=== PATIENT | female | born 1945 | race Caucasian/White ===

== ENCOUNTER 2016-11-04 13:23 | Emergency (ER) | payer OTHER, MEDICARE ==
--- NOTE | 2016-11-04 13:52 | UCPHY ---
H & P Time Seen by Provider: 11/04/16 13:29 Patient Type: New HPI/ROS: CHIEF COMPLAINT: Right otalgia x2 weeks HISTORY OF PRESENT ILLNESS: 71-year-old female history of frequent cerumen impaction, uses Debrox on a regular basis complaining of atraumatic right otalgia and decreased hearing right ear for the past 2 weeks. She notes that she is exquisitely sensitive to speculum examination of the external auditory canal or to cerumen disimpaction. No otorrhea. No dizziness. No vertigo. No nausea no vomiting. No headache. No rash. PHYSICAL EXAM (Prior to examination, patient consented to physical exam, hands were washed and my usual and customary physical exam procedures followed) 1) GENERAL: Well-developed, well-nourished, alert and oriented. Appears to be in no acute distress. 2) HEAD: Normocephalic 3) HEENT: left ear: Sensitivity with speculum placement. Clear EAC. Normal appearing tympanic membrane. Mastoid nontender non boggy. No rash. Right ear : Patient experiences quite a bit of sensitivity with speculum placement in the external auditory canal. No otorrhea. No pain with movement of the auricle or tragus. Complete cerumen impaction. I am unable to visualize the tympanic membrane. Right mastoid nontender non boggy. No rash. 4) LUNGS: Breathing comfortably. 5) SKIN: no rash or vesicles Allergies/Adverse Reactions: No Known Allergies Allergy (Unverified 07/30/13 13:13) Home Medications: Medication Instructions Recorded Estrogen Dot 07/30/13 Hydrocodone Bit/Acetaminophen 07/30/13 Lorazepam 07/30/13 Lyrica 07/30/13 MDM/Departure - [facility] ED Course/Re-evaluation: This patient has right otalgia with right cerumen impaction. I offered and recommended debridement of cerumen however she notes that because she has quite a bit of sensitivity she declines this prefers to perform at home debrox and follow up with ENT. She has been informed that I am unable to visualize the tympanic membrane, and as such I am unable to comment to whether patient has otitis media or other pathology P on the cerumen impaction. - Depart Disposition: Home, Routine, Self-Care Clinical Impression: Impacted cerumen, right ear, Otalgia of right ear Condition: Good Instructions: Cerumen Impaction (ED), Earache (ED) Referrals: Wallace Valentin MD [Medical Doctor] - 1-2 days without fail ( Dr. Wallace Valentin is an ear nose and throat doctor) - PQRS PQRS Measurement: 134: Depression screening and followup, PRIME MD-PHQ2 (12 years and older) Over the last 2 weeks, how often have you been bothered by any of the following problems? 1. Feeling down, depressed, or hopeless? 2. Little interest or pleasure in doing things? Patient answered no to both 1 and 2 130: Documentation of medications. Reviewed all patient medications, doses, route and frequency. 226: Do you smoke? No. 47: 65 and older: Advanced care planning. Patient has advanced directive. 51: 18 years old and older with diagnosis of COPD, spirometry performance. Patient has no history of COPD 52: 18 years old and older with COPD and symptoms of COPD or FEV1<60% predicted prescribed a B Agonist. Not applicable
[2016-11-04 13:54] VITALS: BP 139/83; PULSE 76; RESP 16; TEMP 98.4; O2SAT 97
== END 2016-11-04 14:10 | disposition home or self-care (01) ==
LOC: CED 13:23
DX: H61.21 Impacted cerumen, right ear (principal); H92.01 Otalgia, right ear
CPT/HCPCS: 99203-PO; G0463-PO